=== PATIENT | female | born 1965 | race Two or more races ===

== ENCOUNTER 2018-01-17 22:32 | Emergency (ER) | payer BC ==
[~2018-01-17] VITALS: Ht 160 cm; Wt 75.1 kg
[2018-01-18 00:03] LABS: HEMATOCRIT 35.2 % (36.0-46.0); HEMOGLOBIN 12.6 G/DL (11.9-15.5); MCH 32.1 PG (29.0-34.0); MCHC 35.8 G/DL (30.0-36.0); MCV 89.6 FL (83-99); PLATELET COUNT 227 K/uL (156-360); RBC DIS.WIDTH-CV 11.5 % (11.8-14.6); RBC DIS.WIDTH-SD 37.2 % (39-53); RED BLOOD COUNT 3.93 M/uL (3.80-5.20); WHITE BLOOD COUNT 5.9 K/uL (4.1-10.2)
[2018-01-18 00:17] LABS: CHLORIDE 101 mEq/L (99-109); POTASSIUM 3.3 mEq/L (3.7-5.4); SODIUM 138 mEq/L (136-147)
[2018-01-18 00:18] LABS: GLUCOSE 84 mg/dL (70-99)
[2018-01-18 00:22] LABS: CREATININE 0.8 mg/dL (0.6-1.3); GFR ESTIMATE (CALCULATED) > 59 mL/min/
[2018-01-18 00:23] LABS: UREA NITROGEN (BUN) 15 mg/dL (9-23)
[2018-01-18 00:29] LABS: TROP-I INTERPRETATION NEGATIVE; TROPONIN-I < 0.01 ng/mL (0.0-0.30)
[2018-01-18 02:46] VITALS: BP 109/44
== END 2018-01-18 02:47 | disposition home or self-care (01) ==
LOC: EDBD 22:32 → EME 22:32
PROVIDERS: Emergency Medicine
DX: S30.0XXA Contusion of lower back and pelvis, initial encounter (principal); R07.89 Other chest pain; S20.212A Contusion of left front wall of thorax, initial encounter; W10.9XXA Fall (on) (from) unspecified stairs and steps, initial encounter; G89.29 Other chronic pain; I10 Essential (primary) hypertension; F32.9 Major depressive disorder, single episode, unspecified; K21.9 Gastro-esophageal reflux disease without esophagitis
CPT/HCPCS: 71250; 72131; 80048; 84484; 85027; 93005; 99281; 99285